=== PATIENT | male | born 1955 | race Caucasian/White ===

== ENCOUNTER 2018-12-15 20:06 | Emergency (ER) | payer BC, OTHER ==
[2013-11-20 09:46] VITALS: Wt 95.3 kg
[~2018-12-15 20:06] MED LIST: ACET-1966 PO; Bethanechol Chl PO; CELE200C7 PO; CYCL10TA29 PO; Cephalexin Monohydrate PO; DIA5 PO; FEXO1TAB60 PO; HYDR-385 PO; IBUP-56 PO; IBUP800T37 PO; METH4TAB57 PO; METH4TAB66 PO; OXYC-865 PO; OXYC-869 PO; PER PO; PRE10 PO; RIVA15TA PO; RIVA20TA PO; Tamsulosin Hcl PO
--- NOTE | 2018-12-15 20:18 | ER Report ---
History and Physical Time Seen By MD: 20:15 Hx. of Stated Complaint: DROPPED LARGE PIECE OF MACHINARY ON L FOOT TODAY AT NOON. BRUISING AND SWELLING TO TOP OF FOOT, ESPECIALLY 2ND TOE. CAP REFILL BRISK/PULSE PRESENT. HPI/ROS CHIEF COMPLAINT: left foot pain HISTORY OF PRESENT ILLNESS: 63 yo M c/o left foot and toe pain that started at noon after dropping a 30lb metal object on it. Dark bruising over the 2nd digit and 2nd distal metatarsal. He is not able to bear weight but does maintain movement, sensation and circulation in his toes. Denies pain anywhere else. Has iced it before coming into ED. REVIEW OF SYSTEMS: Respiratory: No cough, no dyspnea. Cardiovascular: No chest pain, no palpitations. Musculoskeletal: Left foot pain, left 2nd toe pain Allergies: Coded Allergies: No Known Drug Allergies (Verified , 12/15/18) Home Meds Active Scripts Rivaroxaban 20 Mg (XARELTO 20 MG) 20 Mg Tablet, 20 MG PO DAILY, #30 TAB 1 Refill This dose is to begin after completing threee weeks of Xarelto 15mg PO BID. This will be approximately July 20, 2016. Prov:CRISTI LANDA MD 06/30/16 Reported Medications Acetaminophen (TYLENOL) 325 Mg Tablet, 325 MG PO PRN PRN for PAIN, TAB 06/28/16 Past Medical/Surgical History PE (x2), arthritis, back pain, EENT disorders, glasses, cervical fusion Reviewed Nurses Notes: Yes Hx Smoking: No Smoking Status: Former Smoker Hx Substance Use Disorder: No Hx Alcohol Use: No Constitutional Vital Sign - Last 24 Hours 12/15/18 12/15/18 20:10 21:32 Temp 98.1 Pulse 86 74 Resp 18 18 B/P (MAP) 160/95 124/74 (91) Pulse Ox 94 95 O2 Delivery Room Air Room Air Physical Exam General Appearance: The patient is alert, has no immediate need for airway protection and no current signs of toxicity. Eyes: Pupils equal and round no injection. Respiratory: Chest is non tender, lungs are clear to auscultation. Cardiac: regular rate and rhythm Musculoskeletal: TTP and echymosis over left 2nd digit and left 2nd distal metatarsal. Limited ROM in 2nd digit. FROM of ankle. no TTP of 1st, 3rd, 4th or 5th metatarsal. Neck: Neck is supple and non tender. Skin: No rashes or lesions. DIFFERENTIAL DIAGNOSIS: After history and physical exam differential diagnosis was considered for contusion, fracture, hematoma. Medical Decision Making EKG/Imaging Imaging EXAMINATION: Right foot radiographs 3 views HISTORY: .Weight on left foot. Second metatarsal pain. Crush injury. COMPARISON: None. FINDINGS: AP, lateral and oblique views of the right foot are obtained. Bones: Nondisplaced acute intra-articular fracture through the distal aspect of the second proximal phalanx. Joint spaces: Negative. Hardware: None. Alignment: Normal. Soft tissues: Negative. IMPRESSION: Nondisplaced acute intra-articular fracture through the distal aspect of the proximal phalanx of the left second toe. Report Dictated By: Dat Gauthier MD at 12/15/2018 9:08 PM Report E-Signed By: Dat Gauthier MD at 12/15/2018 9:12 PM WSN:[email or web address] ED Course/Re-evaluation ED Course Patient presented with pain of the left foot after dropping a 30lb metal object on it at noon today. Foot was evaluated and differential diagnosis discussed. Bruising and pain over the 2nd metatarsal and 2nd digit. X-ray showed a hair line fracture of the distal proximal phalanx of digit 2. Post op shoe given with referral to orthopedics. Patient refused crutches as he has a cane at home he will use. Discharged. Decision to Disposition Date: Dec 15, 2018 Decision to Disposition Time: 21:35 Depart Departure Latest Vital Signs Vital Signs Date Time Temp Pulse Resp B/P (MAP) Pulse Ox O2 Delivery O2 Flow Rate FiO2 12/15/18 21:32 74 18 124/74 (91) 95 Room Air 12/15/18 20:10 98.1 Impression: Primary Impression: Fracture of toe of left foot Condition: Improved Disposition: HOME OR SELF-CARE Referrals: TAYLOR CASTANEDA MD (PCP) JACOB BARILLAS MD Patient Instructions: Toe Fracture (ED) Additional Instructions: Given post op shoe. Will use cane patient already has at home. Rest and restriction of activities that cause pain. Follow up with Orthopedics. If pain suddenly worsens return to ED. Problem Qualifiers Primary Impression: Fracture of toe of left foot Encounter type: initial encounter Toe: lesser toe Fracture type: closed Phalanx: proximal Fracture alignment: nondisplaced Qualified Codes: S92.515A - Nondisplaced fracture of proximal phalanx of left lesser toe(s), initial encounter for closed fracture ROSE KENT Dec 15, 2018 20:18
--- NOTE | 2018-12-15 21:18 | RADIOLOGY IMAGING REPORT ---
FACILITY: [facility] PATIENT NAME: Prashant Adler : 1955 MR: [id number] V: [id number] EXAM DATE: ORDERING PHYSICIAN: ROSE KENT TECHNOLOGIST: [facility] Patient: Prashant Adler : 1955 Visit/Account:[id number] Date of Sevice: 12/15/2018 EXAMINATION: Right foot radiographs 3 views HISTORY: .Weight on left foot. Second metatarsal pain. Crush injury. COMPARISON: None. FINDINGS: AP, lateral and oblique views of the right foot are obtained. Bones: Nondisplaced acute intra-articular fracture through the distal aspect of the second proximal phalanx. Joint spaces: Negative. Hardware: None. Alignment: Normal. Soft tissues: Negative. IMPRESSION: Nondisplaced acute intra-articular fracture through the distal aspect of the proximal phalanx of the left second toe. Report Dictated By: Dat Gauthier MD at 12/15/2018 9:08 PM Report E-Signed By: Dat Gauthier MD at 12/15/2018 9:12 PM WSN:[email or web address]
[2018-12-15 21:32] VITALS: BP 124/74
== END 2018-12-15 21:46 | disposition home or self-care (01) ==
LOC: ER 20:16
DX: S92.515A Nondisplaced fracture of proximal phalanx of left lesser toe(s), initial encounter for closed fracture (principal)
CPT/HCPCS: 73630; 99283; L3260